=== PATIENT | female | born 1960 | race Caucasian/White ===

== ENCOUNTER 2017-10-28 23:57 | Inpatient (IN) ==
[2017-10-29] MEDS ORDERED: TICAGRELOR 90 MG TABLET ONE (00:10)
[2017-10-29] MEDS ORDERED: NITROGLYCERIN 2% OINT 1 INCH/GM PACK TOP ONE (00:10)
[2017-10-29] MEDS ORDERED: NITROGLYCERIN 2% OINT 1 INCH/GM PACK TOP STA (00:14)
[2017-10-29] MEDS ORDERED: SODIUM CHLORIDE 0.9% 1,000 ML IV STA (00:14)
[2017-10-29 00:30] LABS: INR 0.9; PT Patient Result 9.4 SECS
[2017-10-29 00:46] LABS: Basophils # 0.1 10*3/uL (0.0-0.2); Basophils % 0.8 % (0.0-0.8); Eosinophils # 0.1 10*3/uL (0.0-0.87); Eosinophils % 2.3 % (0.00-10.9); Hematocrit 37.1 VOL% (35.7-47.0); Hemoglobin 12.2 GM/DL (12.0-16.0); Immature Granulocytes Absolute 0.06 #; Lymphocytes # 1.6 10*3/uL (1.4-4.0); Lymphocytes % 25.9 % (21.3-54.2); Mean Corpuscular HGB Conc 32.9 GM/DL (32-36); Mean Corpuscular Hemoglobin 30 PG (27-34); Mean Corpuscular Volume 92.1 FL (87-102); Mean Platelet Volume 9.6 FL (9.6-12.0); Monocytes # 0.5 10*3/uL (0.11-0.8); Monocytes % 8.3 % (1.7-12.7); Neutrophils # 3.8 10*3/uL (1.4-7.4); Neutrophils % 61.7 % (38.7-73.9); Platelet Count 297 T/CUMM (130-400); Red Blood Count 4.03 MC/CUMM (3.8-5.5); Red Cell Distribution Width 13.8 % (9.3-17.3); White Blood Count 6.1 T/CUMM (4-12)
[2017-10-29] MEDS ORDERED: ENOXAPARIN 80 MG/0.8 ML SYRINGE SUBCUT STA (00:46)
[2017-10-29 00:48] LABS: Alanine Aminotransferase 22 U/L (13-56); Albumin 3.9 G/DL (3.4-5.0); Alkaline Phosphatase 43 U/L (45-117); Aspartate Amino Transferase 8 U/L (0-37); Bilirubin,Total < 0.39 MG/DL (0.2-1.0); Blood Urea Nitrogen 17 MG/DL (7-18); Calcium 8.6 MG/DL (8.5-10.1); Glucose 269 MG/DL (74-106); Sodium 145 MMOL/L (136-145); Total Protein 6.8 G/DL (6.4-8.3)
[2017-10-29 00:49] LABS: Osmolality,Calculated 298.7 MOS/KG (273-304); Potassium 4.1 MMOL/L (3.5-5.1)
[2017-10-29] MEDS ORDERED: ONDANSETRON 4 MG/2 ML VIAL IV PRN (01:46)
[2017-10-29] MEDS ORDERED: MAGNESIUM SULF RIDER 4 GM in PREMIX 1 EACH IV PRN (01:46)
[2017-10-29] MEDS ORDERED: ACETAMINOPHEN 325 MG TABLET PO PRN (01:46)
[2017-10-29] MEDS ORDERED: MORPHINE 4 MG/1 ML VIAL IV PRN (01:46)
[2017-10-29] MEDS ORDERED: DOCUSATE SODIUM 100 MG CAPSULE PO PRN (01:46)
[2017-10-29] MEDS ORDERED: MAGNESIUM SULF RIDER 2 GM in PREMIX 1 EACH IV PRN (01:46)
[2017-10-29] MEDS: SODIUM CHLORIDE 0.9% 1,000 ML IV SCH ×3 (03:20→21:05)
[2017-10-29] MEDS: ENOXAPARIN 40 MG/0.4 ML SYRINGE SUBCUT SCH (08:16)
[2017-10-29] MEDS: PANTOPRAZOLE 40 MG TABLET PO SCH (08:31)
[2017-10-29] MEDS ORDERED: ALPRAZolam 0.25 MG TABLET PO PRN (10:05)
[2017-10-29] MEDS ORDERED: NITROGLYCERIN SL 0.4 MG TABLET SL PRN (10:05)
[2017-10-29] MEDS ORDERED: NON-FORMULARY MEDICATION (Dapagliflozin Propanediol [Farxiga] 10 MG) PO SCH (10:15)
[2017-10-29] MEDS ORDERED: NON-FORMULARY MEDICATION (Omeprazole [Prilosec] 20 MG) PO SCH (10:15)
[2017-10-29] MEDS: ASPIRIN EC 325 MG TABLET PO SCH (13:27)
[2017-10-29] MEDS: RANOLAZINE 500 MG TABLET PO SCH ×2 (13:27→21:01)
[2017-10-29] MEDS: CARVEDILOL 6.25 MG TABLET PO SCH ×2 (13:27→21:01)
[2017-10-29] MEDS: CLOPIDOGREL 75 MG TABLET PO SCH (13:27)
[2017-10-29] MEDS: ISOSORBIDE MONONITRATE 30 MG TABLET PO SCH (13:27)
[2017-10-29] MEDS: LOSARTAN 50 MG TABLET PO SCH (13:27)
[2017-10-29] MEDS ORDERED: DIAZEPAM 5 MG TABLET PO ONE (15:43)
[2017-10-29] MEDS ORDERED: POTASSIUM CHLORIDE RIDER 10 MEQ in PREMIX 1 EACH IV PRN (15:43)
[2017-10-29] MEDS ORDERED: diphenhydrAMINE CAP 25 MG CAPSULE PO ONE (15:43)
[2017-10-29] MEDS ORDERED: ROSUVASTATIN 20 MG TABLET PO SCH (21:00)
[2017-10-29] MEDS ORDERED: ESCITALOPRAM 10 MG TABLET PO SCH (21:00)
[2017-10-29] MEDS: FERROUS SULFATE 325 MG TABLET PO SCH (21:01)
[2017-10-29] MEDS: CHOLECALCIFEROL 5,000 UNIT TABLET PO SCH (21:01)
[2017-10-30] MEDS ORDERED: diphenhydrAMINE CAP 25 MG CAPSULE PO ONE (06:00)
[2017-10-30] MEDS ORDERED: DIAZEPAM 5 MG TABLET PO ONE (06:00)
[2017-10-30] MEDS: SODIUM CHLORIDE 0.9% 1,000 ML IV SCH ×2 (06:25→14:58)
[2017-10-30] MEDS: PANTOPRAZOLE 40 MG TABLET PO SCH (08:49)
[2017-10-30] MEDS: RANOLAZINE 500 MG TABLET PO SCH (08:49)
[2017-10-30] MEDS: LOSARTAN 50 MG TABLET PO SCH (08:49)
[2017-10-30] MEDS: ISOSORBIDE MONONITRATE 30 MG TABLET PO SCH (08:49)
[2017-10-30] MEDS: CARVEDILOL 6.25 MG TABLET PO SCH (08:50)
[2017-10-30] MEDS ORDERED: FENOFIBRATE 160 MG TABLET PO SCH (09:00)
[2017-10-30] MEDS ORDERED: FUROSEMIDE 20 MG TABLET PO SCH (09:00)
[2017-10-30] MEDS ORDERED: HEPARIN/NACL 0.9% 2 UNITS/ML 1,000 ML IV ONE (09:28)
[2017-10-30] MEDS: CLOPIDOGREL 75 MG TABLET PO SCH (09:46)
[2017-10-30] MEDS ORDERED: fentaNYL 100 MCG/2 ML VIAL ONE (09:48)
[2017-10-30] MEDS ORDERED: VERAPAMIL 5 MG/2 ML VIAL ONE (09:48)
[2017-10-30] MEDS ORDERED: MIDAZOLAM 2 MG/2 ML VIAL ONE (09:48)
[2017-10-30] MEDS ORDERED: NITROGLYCERIN DRIP 50 MG/250 ML BOTTLE IV ONE (09:48)
[2017-10-30] MEDS ORDERED: ENOXAPARIN 30 MG/0.3 ML SYRINGE ONE (10:06)
[2017-10-30] MEDS ORDERED: CARVEDILOL 12.5 MG TABLET PO SCH (10:44)
[2017-10-30] MEDS ORDERED: ASCORBIC ACID 500 MG TABLET PO SCH (11:00)
[2017-10-30] MEDS ORDERED: SODIUM CHLORIDE 0.9% 1,000 ML IV SCH (11:00)
[2017-10-30] MEDS: ENOXAPARIN 40 MG/0.4 ML SYRINGE SUBCUT SCH (11:07)
[2017-10-30] MEDS: CHOLECALCIFEROL 5,000 UNIT TABLET PO SCH (11:07)
[2017-10-30] MEDS: FERROUS SULFATE 325 MG TABLET PO SCH (11:08)
[2017-10-30] MEDS: ASPIRIN EC 325 MG TABLET PO SCH (11:08)
[2017-10-30 13:53] LABS: Basophils % 0.7 % (0.0-0.8); Eosinophils # 0.1 10*3/uL (0.0-0.87); Eosinophils % 2.1 % (0.00-10.9); Hematocrit 31.2 VOL% (35.7-47.0); Hemoglobin 10.4 GM/DL (12.0-16.0); Immature Granulocytes % 0.9 %; Immature Granulocytes Absolute 0.04 #; Lymphocytes # 1.3 10*3/uL (1.4-4.0); Lymphocytes % 31.1 % (21.3-54.2); Mean Corpuscular HGB Conc 33.3 GM/DL (32-36); Mean Corpuscular Hemoglobin 30 PG (27-34); Mean Corpuscular Volume 90.2 FL (87-102); Mean Platelet Volume 9.6 FL (9.6-12.0); Monocytes # 0.2 10*3/uL (0.11-0.8); Monocytes % 5.6 % (1.7-12.7); Neutrophils # 2.6 10*3/uL (1.4-7.4); Neutrophils % 59.6 % (38.7-73.9); Platelet Count 244 T/CUMM (130-400); Red Blood Count 3.46 MC/CUMM (3.8-5.5); White Blood Count 4.3 T/CUMM (4-12)
[2017-10-30 14:16] LABS: Calcium 7.2 MG/DL (8.5-10.1); Osmolality,Calculated 289.8 MOS/KG (273-304); Potassium 3.4 MMOL/L (3.5-5.1)
[2017-10-30 18:16] VITALS: BP 129/70
== END 2017-10-30 18:00 | disposition home or self-care (01) | DRG 287 ==
LOC: N.ED 23:57 → N.EDINP 10-29 01:46 → N.TELES 10-29 02:38
PROVIDERS: ADMIT Internal Medicine Cardiovascular Disease; ATTEND Internal Medicine Cardiovascular Disease
PROC: CLCCHCL (ICD-10-PCS; 2017-10-30 10:15)